=== PATIENT | male | born 1985 | race African-American/Black ===

== ENCOUNTER 2023-04-30 10:46 | Inpatient (IN) | payer OTHER ==
[2023-04-30 11:07] VITALS: BMI 24.8
[2023-04-30] MEDS ORDERED: BISMUTH SUBSALICYLATE 262 MG/15 ML BTL PO PRN (12:48)
[2023-04-30] MEDS ORDERED: NALOXONE HCL (KLOXXADO) 8 MG SPRAY NS PRN (12:48)
[2023-04-30] MEDS ORDERED: NICOTINE POLACRILEX 2 MG LOZENGE BC PRN (12:48)
[2023-04-30] MEDS ORDERED: IBUPROFEN 600 MG TABLET (FP) PO PRN (12:48)
[2023-04-30] MEDS ORDERED: MAGNESIUM HYDROX 2400MG/30ML ORAL SUSPENSION 30 ML CUP PO PRN (12:48)
[2023-04-30] MEDS ORDERED: NALOXONE HCL 0.4 MG/ML VIAL IM PRN (12:48)
[2023-04-30] MEDS ORDERED: POLYETHYLENE GLYCOL (HEALTHYLAX) 3350 17 GM PACKET PO PRN (12:48)
[2023-04-30] MEDS ORDERED: IBUPROFEN 400 MG TABLET (FP) PO PRN (12:48)
[2023-04-30] MEDS ORDERED: BENZONATATE 200 MG CAPSULE PO PRN (12:48)
[2023-04-30] MEDS ORDERED: BENZOCAINE/MENTHOL (CHLORASEPTIC ) LOZENGE MM PRN (12:48)
[2023-04-30] MEDS ORDERED: MAG HYDROX/AL HYDROX/SIMETH 30 ML UNIT-DOSE CUP PO PRN (12:48)
[2023-04-30] MEDS ORDERED: ACETAMINOPHEN 325 MG TABLET (FP) PO PRN (12:48)
[2023-04-30] MEDS ORDERED: LOPERAMIDE HCL 2 MG CAPSULE PO PRN (12:48)
[2023-04-30] MEDS ORDERED: guaiFENesin 600 MG TABLET.ER (FP) PO PRN (12:48)
[2023-04-30] MEDS ORDERED: DICYCLOMINE HCL 10 MG CAPSULE PO PRN (12:48)
[2023-04-30] MEDS ORDERED: ONDANSETRON *ODT* 4 MG TABLET SL PRN (12:48)
[2023-04-30] MEDS: hydrOXYzine PAMOATE 25 MG CAPSULE (FP) PO PRN (22:33)
[2023-04-30] MEDS: THIAMINE HCL 100 MG TABLET (FP) PO SCH (22:33)
[2023-04-30] MEDS: MELATONIN 5 MG TABLETS PO SCH (22:33)
[2023-04-30] MEDS: METHOCARBAMOL 500 MG TABLET PO PRN (22:33)
[2023-05-01 08:28] LABS: CHLORIDE 102 mmol/L (98-107); POTASSIUM 3.6 mmol/L (3.5-5.1); SODIUM 139 mmol/L (136-145)
[2023-05-01 08:33] LABS: ALBUMIN 3.3 g/dl (3.4-5.0); ANION GAP 7 mmol/L (4-13); CALCIUM 8.5 mg/dL (8.5-10.1); CO2 30 mmol/L (21-32); GLUCOSE,RANDOM 96 mg/dL (74-106)
[2023-05-01 08:34] LABS: SGPT/ALT 114 U/L (13-61)
[2023-05-01 08:35] LABS: CREATININE 0.7 mg/dL (0.55-1.3); SGOT/AST 150 U/L (15-37)
[2023-05-01] MEDS ORDERED: chlordiazePOXIDE HCL 25 MG CAPSULE PO PRN (08:35)
[2023-05-01 08:36] LABS: BILIRUBIN,TOTAL 1.7 mg/dL (0.2-1)
[2023-05-01 08:37] LABS: ALK PHOS 99 U/L (45-117)
[2023-05-01 08:39] LABS: HEMATOCRIT 35.3 % (35.4-49); HEMOGLOBIN 11.9 GM/dL (11.7-16.9); MCH 29.2 pg (25.7-33.7); MCHC 33.8 g/dl (32.0-35.9); MEAN CELL VOLUME 86.4 fl (80-96); MEAN PLT VOLUME 8.9 fl (7.5-11.1); PLATELET COUNT 204 10^3/uL (134-434); RBC 4.08 M/mm3 (4.00-5.60); RDW 16.9 % (11.9-15.9); WHITE BLOOD COUNT 3.2 K/mm3 (4.0-10.0)
[2023-05-01] MEDS: chlordiazePOXIDE HCL 25 MG CAPSULE PO SCH ×3 (10:32→22:15)
[2023-05-01] MEDS: PRENATAL VITAMINS W/ FOLIC ACID TABLET (FP) PO SCH (10:32)
[2023-05-01 13:09] LABS: HIV INTERPRETATION NEGATIVE (NEGATIVE)
[2023-05-01] MEDS: MELATONIN 5 MG TABLETS PO SCH (22:15)
[2023-05-01] MEDS: THIAMINE HCL 100 MG TABLET (FP) PO SCH (22:15)
[2023-05-02] MEDS: chlordiazePOXIDE HCL 25 MG CAPSULE PO SCH ×2 (05:26→10:23)
[2023-05-02 09:32] VITALS: BP 143/84; PULSE 72; RESP 19; TEMP 97.6
[2023-05-02] MEDS: METHOCARBAMOL 500 MG TABLET PO PRN (10:22)
[2023-05-02] MEDS: hydrOXYzine PAMOATE 25 MG CAPSULE (FP) PO PRN (10:23)
[2023-05-02] MEDS: PRENATAL VITAMINS W/ FOLIC ACID TABLET (FP) PO SCH (10:23)
[2023-05-03] MEDS ORDERED: chlordiazePOXIDE HCL 25 MG CAPSULE PO SCH (05:00)
[2023-05-04] MEDS ORDERED: chlordiazePOXIDE HCL 10 MG CAPSULE PO PRN
[2023-05-04] MEDS ORDERED: chlordiazePOXIDE HCL 10 MG CAPSULE PO SCH (05:00)
[2023-05-05] MEDS ORDERED: chlordiazePOXIDE HCL 10 MG CAPSULE PO SCH (05:00)
[2023-05-06] MEDS ORDERED: chlordiazePOXIDE HCL 10 MG CAPSULE PO ONE (05:00)
== END 2023-05-02 12:12 | disposition left against medical advice (07) | DRG 770 ==
LOC: YASAS 10:46 → Y6N 12:03
PROVIDERS: ADMIT Surgery; ATTEND Surgery
PROC: HZ2ZZZZ Detoxification Services for Substance Abuse Treatment (ICD-10-PCS; principal; 2023-04-30)
DX: F10.230 Alcohol dependence with withdrawal, uncomplicated (principal); F10.220 Alcohol dependence with intoxication, uncomplicated; F17.210 Nicotine dependence, cigarettes, uncomplicated; I10 Essential (primary) hypertension
CPT/HCPCS: 36415; 80053; 80307; 85027; 86780; 87389; 87635; Q0162

== ENCOUNTER 2024-02-06 11:43 | Inpatient (IN) | payer OTHER ==
[2024-02-06 12:03] VITALS: BMI 25.2
[2024-02-06] MEDS ORDERED: ACETAMINOPHEN 325 MG TABLET (FP) PO PRN (13:28)
[2024-02-06] MEDS ORDERED: METHOCARBAMOL 500 MG TABLET PO PRN (13:28)
[2024-02-06] MEDS ORDERED: guaiFENesin 600 MG TABLET.ER (FP) PO PRN (13:28)
[2024-02-06] MEDS ORDERED: MAG HYDROX/AL HYDROX/SIMETH 30 ML UNIT-DOSE CUP PO PRN (13:28)
[2024-02-06] MEDS ORDERED: DICYCLOMINE HCL 10 MG CAPSULE PO PRN (13:28)
[2024-02-06] MEDS ORDERED: MAGNESIUM HYDROX 2400MG/30ML ORAL SUSPENSION 30 ML CUP PO PRN (13:28)
[2024-02-06] MEDS ORDERED: POLYETHYLENE GLYCOL (HEALTHYLAX) 3350 17 GM PACKET PO PRN (13:28)
[2024-02-06] MEDS ORDERED: NICOTINE POLACRILEX 2 MG GUM BUC PRN (13:28)
[2024-02-06] MEDS ORDERED: chlordiazePOXIDE HCL 25 MG CAPSULE PO PRN (13:28)
[2024-02-06] MEDS ORDERED: LOPERAMIDE HCL 2 MG CAPSULE PO PRN (13:28)
[2024-02-06] MEDS ORDERED: NALOXONE (NARCAN) HCL 4 MG/0.1 ML SPRAY NS PRN (13:28)
[2024-02-06] MEDS ORDERED: IBUPROFEN 600 MG TABLET (FP) PO PRN (13:28)
[2024-02-06] MEDS ORDERED: hydrOXYzine PAMOATE 25 MG CAPSULE (FP) PO PRN (13:28)
[2024-02-06] MEDS ORDERED: BISMUTH SUBSALICYLATE 262 MG/15 ML BTL PO PRN (13:28)
[2024-02-06] MEDS ORDERED: ONDANSETRON *ODT* 4 MG TABLET SL PRN (13:28)
[2024-02-06] MEDS ORDERED: BENZOCAINE/MENTHOL (CHLORASEPTIC ) LOZENGE MM PRN (13:28)
[2024-02-06] MEDS ORDERED: BENZONATATE 200 MG CAPSULE PO PRN (13:28)
[2024-02-06] MEDS ORDERED: IBUPROFEN 400 MG TABLET (FP) PO PRN (13:28)
[2024-02-06] MEDS: amLODIPine BESYLATE 10 MG TABLET (FP) PO SCH (14:39)
[2024-02-06] MEDS: chlordiazePOXIDE HCL 25 MG CAPSULE PO SCH (17:59)
[2024-02-06] MEDS: THIAMINE 100 MG TABLET PO SCH (23:21)
[2024-02-06] MEDS: MELATONIN 5 MG TABLETS PO SCH (23:27)
[2024-02-07] MEDS: PRENATAL VITAMINS W/ FOLIC ACID TABLET (FP) PO SCH (10:13)
[2024-02-07] MEDS: NICOTINE 21 MG/24 HOURS TOPICAL PATCH TD SCH (10:13)
[2024-02-07 17:36] LABS: HEMOGLOBIN 11.9 GM/dL (11.7-16.9); MCH 28.9 pg (25.7-33.7); MEAN CELL VOLUME 87.8 fl (80-96); MEAN PLT VOLUME 9.8 fl (7.5-11.1); PLATELET COUNT 72 10^3/uL (134-434); RDW 16.5 % (11.9-15.9); WHITE BLOOD COUNT 3.2 K/mm3 (4.0-10.0)
[2024-02-07 17:59] LABS: POTASSIUM 3.1 mmol/L (3.5-5.1)
[2024-02-07 18:09] LABS: ALBUMIN 3.1 g/dl (3.4-5.0); BLOOD UREA NITROGEN 5.7 mg/dL (7-18); CALCIUM 8.5 mg/dL (8.5-10.1)
[2024-02-07 18:12] LABS: CREATININE 0.7 mg/dL (0.55-1.3)
[2024-02-07 18:13] LABS: BILIRUBIN,TOTAL 2.9 mg/dL (0.2-1)
[2024-02-08] MEDS: chlordiazePOXIDE HCL 25 MG CAPSULE PO SCH (05:24)
[2024-02-08] MEDS: POTASSIUM CHLORIDE ORAL LIQUID 20 MEQ/15 ML PO ONE (13:29)
[2024-02-09] MEDS ORDERED: chlordiazePOXIDE HCL 10 MG CAPSULE PO PRN
[2024-02-09] MEDS: chlordiazePOXIDE HCL 10 MG CAPSULE PO SCH (05:30)
[2024-02-09 11:14] LABS: POTASSIUM 3.6 mmol/L (3.5-5.1)
[2024-02-09 11:17] LABS: ALBUMIN 3.4 g/dl (3.4-5.0); BLOOD UREA NITROGEN 6.9 mg/dL (7-18)
[2024-02-09 11:21] LABS: CREATININE 0.7 mg/dL (0.55-1.3)
[2024-02-09 11:22] LABS: TOT PROT 6.4 g/dl (6.4-8.2)
[2024-02-09 11:41] LABS: BILIRUBIN,TOTAL 0.8 mg/dL (0.2-1)
[2024-02-10] MEDS: chlordiazePOXIDE HCL 10 MG CAPSULE PO SCH (05:31)
[2024-02-11] MEDS: chlordiazePOXIDE HCL 10 MG CAPSULE PO ONE (05:39)
[2024-02-11 06:57] VITALS: RESP 17
[2024-02-11 08:37] VITALS: BP 103/70; PULSE 67; TEMP 97.8
[2024-02-11] MEDS: NALOXONE (NYS OPIOID OVERDOSE PROGRAM) 4 MG/0.1 ML SPRAY NS PRN (11:28)
== END 2024-02-11 11:33 | disposition home or self-care (01) | DRG 775 ==
LOC: YASAS 11:43 → Y6N 13:58
PROVIDERS: ADMIT Allergy & Immunology; ATTEND Surgery
PROC: HZ2ZZZZ Detoxification Services for Substance Abuse Treatment (ICD-10-PCS; principal; 2024-02-06)
DX: F10.230 Alcohol dependence with withdrawal, uncomplicated (principal); F17.210 Nicotine dependence, cigarettes, uncomplicated; F10.280 Alcohol dependence with alcohol-induced anxiety disorder; F10.282 Alcohol dependence with alcohol-induced sleep disorder; F10.24 Alcohol dependence with alcohol-induced mood disorder; F41.8 Other specified anxiety disorders; E87.6 Hypokalemia; I10 Essential (primary) hypertension; R74.8 Abnormal levels of other serum enzymes; Z56.0 Unemployment, unspecified; Z59.00 Homelessness unspecified
CPT/HCPCS: 36415; 80053; 80305; 80307; 85027; 86780; 93005; 93010

== ENCOUNTER 2025-01-29 12:31 | Inpatient (IN) | payer OTHER ==
[2025-01-29] MEDS ORDERED: IBUPROFEN 400 MG TABLET (FP) PO PRN (13:16)
[2025-01-29] MEDS ORDERED: ACETAMINOPHEN 325 MG TABLET (FP) PO PRN (13:16)
[2025-01-29] MEDS ORDERED: BISMUTH SUBSALICYLATE 524 MG/30 ML PO PRN (13:16)
[2025-01-29] MEDS ORDERED: METHOCARBAMOL 500 MG TABLET PO PRN (13:16)
[2025-01-29] MEDS ORDERED: POLYETHYLENE GLYCOL (HEALTHYLAX) 3350 17 GM PACKET PO PRN (13:16)
[2025-01-29] MEDS ORDERED: guaiFENesin 600 MG TABLET.ER (FP) PO PRN (13:16)
[2025-01-29] MEDS ORDERED: BENZONATATE 200 MG CAPSULE PO PRN (13:16)
[2025-01-29] MEDS ORDERED: NALOXONE (NARCAN) HCL 4 MG/0.1 ML SPRAY NS PRN (13:16)
[2025-01-29] MEDS ORDERED: NICOTINE POLACRILEX 2 MG GUM BUC PRN (13:16)
[2025-01-29] MEDS ORDERED: IBUPROFEN 600 MG TABLET (FP) PO PRN (13:16)
[2025-01-29] MEDS ORDERED: MAGNESIUM HYDROX 2400MG/30ML ORAL SUSPENSION 30 ML CUP PO PRN (13:16)
[2025-01-29] MEDS ORDERED: BENZOCAINE/MENTHOL (CHLORASEPTIC ) LOZENGE MM PRN (13:16)
[2025-01-29] MEDS ORDERED: MAG HYDROX/AL HYDROX/SIMETH 30 ML UNIT-DOSE CUP PO PRN (13:16)
[2025-01-29] MEDS ORDERED: hydrOXYzine PAMOATE 25 MG CAPSULE (FP) PO PRN (13:16)
[2025-01-29] MEDS ORDERED: DICYCLOMINE HCL 10 MG CAPSULE PO PRN (13:16)
[2025-01-29] MEDS ORDERED: LOPERAMIDE HCL 2 MG CAPSULE PO PRN (13:16)
[2025-01-29 15:12] VITALS: BMI 25.4
[2025-01-29] MEDS ORDERED: PRENATAL VITAMINS W/ FOLIC ACID TABLET (FP) PO ONE (15:22)
[2025-01-29] MEDS: PRENATAL VITAMINS W/ FOLIC ACID TABLET (FP) PO SCH (15:24)
[2025-01-29] MEDS: THIAMINE 100 MG TABLET PO SCH (22:42)
[2025-01-29] MEDS: MELATONIN 5 MG TABLETS PO SCH (22:43)
[2025-01-30 10:49] LABS: MCHC 35.8 g/dl (32.3-36.5); MEAN CELL VOLUME 81.8 fl (79.0-92.2); MEAN PLT VOLUME 11.1 fl (9.4-12.4); RDW 14.4 % (12.0-15.6)
[2025-01-30] MEDS: NICOTINE 7 MG/24 HOURS TOPICAL PATCH TD SCH (10:55)
[2025-01-30] MEDS: amLODIPine BESYLATE 10 MG TABLET (FP) PO SCH (10:55)
[2025-01-30 11:01] LABS: GLUCOSE,RANDOM 76.0 mg/dL (74-106); TOT PROT 6.3 g/dl (6.4-8.2)
[2025-01-30 11:02] LABS: CO2 30.0 mmol/L (21-32)
[2025-01-30 11:04] LABS: ALK PHOS 121.0 U/L (40-150)
[2025-01-30 11:07] LABS: CREATININE 0.64 mg/dL (0.55-1.3); SGOT/AST 240.0 U/L (5-34); SGPT/ALT 86.0 U/L (0-55)
[2025-01-30] MEDS: POTASSIUM CHLORIDE TABS 20 MEQ TABLET.ER (FP) PO ONE (17:56)
[2025-01-30] MEDS: ONDANSETRON *ODT* 4 MG TABLET SL PRN (17:57)
[2025-01-31 07:10] VITALS: RESP 16
[2025-01-31 11:14] LABS: GLUCOSE,RANDOM 86.0 mg/dL (74-106)
[2025-01-31 11:16] LABS: CO2 29.0 mmol/L (21-32)
[2025-01-31 11:20] LABS: CREATININE 0.6 mg/dL (0.55-1.3)
[2025-01-31 12:53] VITALS: BP 126/92; PULSE 69; TEMP 97.8
[2025-01-31] MEDS ORDERED: MAGNESIUM OXIDE 400 MG TABLET (FP) PO SCH (14:30)
[2025-01-31] MEDS ORDERED: POTASSIUM CHLORIDE TABS 20 MEQ TABLET.ER (FP) PO SCH (16:30)
== END 2025-01-31 15:00 | disposition home or self-care (01) | DRG 775 ==
LOC: YASAS 12:31 → Y6N 15:30
PROVIDERS: ADMIT Allergy & Immunology; ATTEND Student in an Organized Health Care Education/Training Program
PROC: HZ2ZZZZ Detoxification Services for Substance Abuse Treatment (ICD-10-PCS; principal; 2025-01-29)
DX: F10.230 Alcohol dependence with withdrawal, uncomplicated (principal); I10 Essential (primary) hypertension; F41.8 Other specified anxiety disorders; F39 Unspecified mood [affective] disorder; K64.9 Unspecified hemorrhoids; I85.00 Esophageal varices without bleeding
CPT/HCPCS: 36415; 80048; 80053; 80305; 80307; 82140; 85027; 86780; 93005; 93010; Q0162